=== PATIENT | female | born 1960 | race Two or more races ===

== ENCOUNTER 2020-08-09 10:04 | Outpatient (CLI) | payer OTHER | END 2020-08-09 10:08 | disposition home or self-care (01) | LOC: SONOGRAMA 10:04 | PROVIDERS: ATTEND Pathology Anatomic Pathology & Clinical Pathology | DX: E83.52 Hypercalcemia (principal) ==

== ENCOUNTER 2021-11-05 07:51 | Outpatient (CLI) | payer OTHER | END 2021-11-05 07:52 | disposition home or self-care (01) | LOC: LAB 07:51 | PROVIDERS: ATTEND Internal Medicine Gastroenterology | DX: R83.5 Abnormal microbiological findings in cerebrospinal fluid (principal) ==

== ENCOUNTER 2021-11-07 08:56 | Outpatient (CLI) | payer OTHER | END 2021-11-07 08:58 | disposition home or self-care (01) | LOC: LAB 08:56 | PROVIDERS: ATTEND Internal Medicine Gastroenterology | DX: E83.52 Hypercalcemia (principal); E04.2 Nontoxic multinodular goiter; E21.0 Primary hyperparathyroidism; E55.9 Vitamin D deficiency, unspecified; K51.00 Ulcerative (chronic) pancolitis without complications; E78.5 Hyperlipidemia, unspecified ==

== ENCOUNTER 2022-02-07 14:20 | Outpatient (CLI) | payer OTHER | END 2022-02-07 14:26 | disposition home or self-care (01) | LOC: SONOGRAMA 14:20 | PROVIDERS: ATTEND Internal Medicine | DX: E04.2 Nontoxic multinodular goiter (principal) ==

== ENCOUNTER 2022-02-10 12:37 | Outpatient (CLI) | payer OTHER | END 2022-02-10 12:46 | disposition home or self-care (01) | LOC: MAMO-SONO 12:37 | PROVIDERS: ATTEND Obstetrics & Gynecology | DX: N60.11 Diffuse cystic mastopathy of right breast (principal); N60.12 Diffuse cystic mastopathy of left breast ==

== ENCOUNTER 2022-05-14 14:59 | Emergency (ER) | payer OTHER ==
[~2022-05-14] VITALS: Ht 162.6 cm; Wt 72.6 kg
[2022-05-14] MEDS ORDERED: MESALAMINE4 GM/60 M1 RC (15:11)
[2022-05-14] MEDS ORDERED: ROSUVASTATIN CA20 MG PO (15:12)
[2022-05-14] MEDS ORDERED: OMEPRAZOLE20 MG PO (15:12)
[2022-05-14] MEDS ORDERED: MESALAMINE800 MG (15:12)
[2022-05-14] MEDS ORDERED: PAROXETINE HCL20 MG PO (15:12)
[2022-05-14] MEDS ORDERED: OPTIMAL D3 M350 MCG PO (15:13)
== END 2022-05-14 18:33 | disposition home or self-care (01) ==
LOC: ER 14:59
DX: M25.562 Pain in left knee (principal)

== ENCOUNTER 2022-05-24 08:02 | Outpatient (CLI) | payer OTHER ==
[~2022-05-24 08:02] MED LIST: MESALAMINE4 GM/60 M1 RC; MESALAMINE800 MG; OMEPRAZOLE20 MG PO; OPTIMAL D3 M350 MCG PO; PAROXETINE HCL20 MG PO; ROSUVASTATIN CA20 MG PO
== END 2022-05-24 08:10 | disposition home or self-care (01) ==
LOC: LAB 08:02
PROVIDERS: ATTEND Internal Medicine Gastroenterology
DX: D64.9 Anemia, unspecified (principal); R10.9 Unspecified abdominal pain; E03.9 Hypothyroidism, unspecified; E78.5 Hyperlipidemia, unspecified; R73.09 Other abnormal glucose; I50.22 Chronic systolic (congestive) heart failure; I10 Essential (primary) hypertension; M32.9 Systemic lupus erythematosus, unspecified; K57.00 Diverticulitis of small intestine with perforation and abscess without bleeding; K52.1 Toxic gastroenteritis and colitis

== ENCOUNTER 2023-10-22 09:02 | Outpatient (CLI) | payer OTHER | END 2023-10-22 09:08 | disposition home or self-care (01) | LOC: SONOGRAMA 09:02 | PROVIDERS: ATTEND Pathology Anatomic Pathology & Clinical Pathology | DX: D34 Benign neoplasm of thyroid gland (principal); E07.89 Other specified disorders of thyroid; E04.1 Nontoxic single thyroid nodule ==

== ENCOUNTER → 2025-01-16 07:33 | Outpatient (CLI) | payer OTHER | END | disposition home or self-care (01) | LOC: NUCLEAR 01-02 07:00 | PROVIDERS: ATTEND Internal Medicine | DX: R07.9 Chest pain, unspecified (principal) | CPT/HCPCS: 78452; 93017; A9500 ==